=== PATIENT | male | born 2000 ===

== ENCOUNTER 2020-08-28 18:03 | Emergency (ER) | payer OTHER ==
[~2020-08-28] VITALS: Ht 170.2 cm; Wt 54.4 kg
== END 2020-08-28 22:51 | disposition home or self-care (01) ==
LOC: ER 18:03
DX: R10.11 Right upper quadrant pain (principal)

== ENCOUNTER 2021-08-31 20:30 | Outpatient (CLI) | payer OTHER | END 2021-08-31 23:00 | disposition home or self-care (01) | LOC: LAB 20:30 | DX: Z20.818 Contact with and (suspected) exposure to other bacterial communicable diseases (principal); Z20.828 Contact with and (suspected) exposure to other viral communicable diseases ==